=== PATIENT | female | born 1965 | race Two or more races ===

== ENCOUNTER 2023-04-16 01:08 | Emergency (ER) | payer OTHER ==
[~2023-04-16] VITALS: Ht 182.9 cm; Wt 74.4 kg
[2023-04-16] MEDS ORDERED: ENALAPRIL-HCTZ1 EAC1 PO (01:17)
[2023-04-16] MEDS ORDERED: DICLOFENAC SOD100 MG PO (04:03)
== END 2023-04-16 05:15 ==
LOC: ER 01:09
DX: M25.511 Pain in right shoulder (principal); Z88.8 Allergy status to other drugs, medicaments and biological substances; I10 Essential (primary) hypertension; M75.51 Bursitis of right shoulder; M75.31 Calcific tendinitis of right shoulder
CPT/HCPCS: 73030; 96372; 99284; J1885; J3301